=== PATIENT | female | born 1970 ===

== ENCOUNTER 2025-01-10 09:00 | Inpatient (IN) | payer OTHER ==
[~2025-01-10] VITALS: Ht 160 cm; Wt 79.8 kg
[2025-01-10 09:46] VITALS: BP 132/84
[2025-01-10 09:47] VITALS: BP 145/75
[2025-01-10 10:52] LABS: RH POSITIVE
[2025-01-17] MEDS ORDERED: CEFAZOLIN SODIUM 1,000 MG VIAL IV ONE (13:00)
[2025-01-17] MEDS ORDERED: LIDOCAINE HCL 1%/EPINEPHRINE 20ML VIAL IJ ONE (13:00)
[2025-01-17] MEDS ORDERED: MORPHINE SULFATE 4 MG/ML VIAL IV ONE ×2 (14:30→16:10)
[2025-01-17] MEDS ORDERED: RINGERS SOLUTION,LACTATED 1,000 ML IV SCH (15:00)
[2025-01-17] MEDS ORDERED: MORPHINE SULFATE 4 MG/ML VIAL IV PRN (15:00)
[2025-01-17] MEDS ORDERED: ONDANSETRON HCL 2 MG/ML VIAL IV PRN (15:00)
[2025-01-17] MEDS ORDERED: MORPHINE SULFATE 4 MG,MORPHINE SULFATE 2 MG IV PRN (15:30)
[2025-01-17] MEDS ORDERED: CEFAZOLIN SODIUM 1,000 MG VIAL IV SCH (18:00)
[2025-01-17 19:11] VITALS: BP 145/75
[2025-01-17 19:26] LABS: BASO % 0.4 % (0.1-1.2); EOS # 0.01 (0.04-0.54); EOS % 0.1 % (0.7-7.0); LYMPH # 1.09 (1.18-3.74); LYMPH % 6.4 % (19.3-53.1); MEAN PLATELET VOLUME 12.40 fl (9.4-12.4); MONO # 0.56 (0.24-0.82); MONO % 3.3 % (4.7-12.5); NEUT # 15.25 (1.56-6.13); NEUT % 89.3 % (34.0-71.1); RED CELL DISTRIBUTION WIDTH 13.3 % (11.6-14.4)
[2025-01-18 00:01] VITALS: BP 108/55
[2025-01-18] MEDS ORDERED: IBU800 MG PO (06:51)
[2025-01-18] MEDS ORDERED: NEURONTIN300 MG PO (06:52)
[2025-01-18 08:19] VITALS: BP 120/63
[2025-01-18] MEDS ORDERED: ENOXAPARIN SODIUM 40 MG/0.4 ML SYRINGE SUBCUTANEO SCH (09:00)
== END 2025-01-18 11:27 | disposition home or self-care (01) | DRG 743 ==
LOC: O/R 01-17 07:56 → OB/GYN 01-17 09:00
PROVIDERS: ADMIT Obstetrics & Gynecology Gynecology; ATTEND Obstetrics & Gynecology Gynecology
PROC: 0JQC0ZZ Repair Pelvic Region Subcutaneous Tissue and Fascia, Open Approach (ICD-10-PCS; 2025-01-17)
PROC: 0USG7ZZ Reposition Vagina, Via Natural or Artificial Opening (ICD-10-PCS; 2025-01-17)
PROC: 0UT97ZZ Resection of Uterus, Via Natural or Artificial Opening (ICD-10-PCS; principal; 2025-01-17 12:45)
DX: D25.1 Intramural leiomyoma of uterus (principal); N80.03 Adenomyosis of the uterus; N81.4 Uterovaginal prolapse, unspecified